=== PATIENT | female | born 1990 | race American Indian/Alaskan Native ===

== ENCOUNTER 2017-05-29 15:46 | Emergency (ER) | payer SELFPAY ==
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
[2017-05-29] MEDS ORDERED: MOTRIN PO ONE (23:39)
[2017-05-30 00:38] VITALS: BP 145/92
== END 2017-05-30 00:37 | disposition home or self-care (01) ==
LOC: ED 15:46
DX: S16.1XXA Strain of muscle, fascia and tendon at neck level, initial encounter (principal); M54.5 Low back pain; E66.01 Morbid (severe) obesity due to excess calories; Z68.43 Body mass index [BMI] 50.0-59.9, adult; F17.200 Nicotine dependence, unspecified, uncomplicated
CPT/HCPCS: 99282

== ENCOUNTER 2018-10-09 19:24 | Emergency (ER) | payer OTHER ==
--- NOTE | 2018-10-09 19:43 | Emergency Department Report ---
Chief Complaint: Extremity Injury, Upper Stated Complaint: NUMBNESS TINGLING BACK SHOULDER PAIN Time Seen by Provider: 10/09/18 19:38 - HPI History of Present Illness: This is a 28 y.o. F. that presents to the ER with numbness and tingling to hands BLE edema for a few days. Patient reports riding in a car for 5 hours yesterday and increased walking. LMP 08/26/2018 - Exam Vital Signs: Vital Signs 10/09/18 19:38 Temperature 98.2 F Pulse Rate 100 H Respiratory 18 Rate Blood Pressure 176/115 O2 Sat by Pulse 100 Oximetry MSE screening note: Focused history and physical exam performed. Due to findings the following was ordered: Labs Clonidine 0.2 mg po ED Disposition for MSE Condition: Stable
[2018-10-09] MEDS ORDERED: CATAPRES ONE (19:46)
[2018-10-09 19:57] LABS: Hematocrit 35.3 % (30.3-42.9); Hemoglobin 11.4 gm/dl (10.1-14.3); Mean Corpuscular HGB Conc 32 % (30-34); Mean Corpuscular Volume 86 fl (79-97); Platelet Count 405 K/mm3 (140-440); Red Blood Count 4.12 M/mm3 (3.65-5.03); Red Cell Distribution Width 15.4 % (13.2-15.2)
[2018-10-09 20:34] LABS: Alanine Aminotransferase 35 units/L (7-56); Albumin 3.8 g/dL (3.9-5); BUN/Creatinine Ratio 15; Blood Urea Nitrogen 9 mg/dL (7-17); Calcium 8.9 mg/dL (8.4-10.2); Hemolysis Index 1
--- NOTE | 2018-10-09 21:17 | Emergency Department Report ---
ED General Adult HPI - General Chief complaint: Extremity Injury, Upper Stated complaint: NUMBNESS TINGLING BACK SHOULDER PAIN Time Seen by Provider: 10/09/18 19:38 Source: patient Mode of arrival: Ambulatory Limitations: No Limitations - History of Present Illness Initial comments: Patient is a 28-year-old female with no significant past medical history. Patient presented to the ER complaining of generalized numbness since this morning. Patient denied any headache, chest pain, shortness of breath but she is also complaining of bilateral lower extremity swelling since yesterday. Patient stated that she drove from [place] yesterday approximately [address] - Related Data Previous Rx's Medication Instructions Recorded Last Taken Type Cyclobenzaprine [Flexeril] 10 mg PO TID PRN 5 Days #15 tablet 05/30/17 Unknown Rx Ibuprofen [Motrin 800 MG tab] 800 mg PO Q8H PRN 5 Days #15 tablet 05/30/17 Unknown Rx Allergies Allergy/AdvReac Type Severity Reaction Status Date / Time No Known Allergies Allergy Verified 10/09/18 19:29 ED Review of Systems ROS: Stated complaint: NUMBNESS TINGLING BACK SHOULDER PAIN Other details as noted in HPI Comment: All other systems reviewed and negative Constitutional: denies: chills, fever Cardiovascular: denies: chest pain, palpitations Gastrointestinal: denies: abdominal pain, nausea Neurological: numbness. denies: headache, weakness, paresthesias, confusion, abnormal gait ED Past Medical Hx - Past Medical History Previous Medical History?: Yes Additional medical history: Morbid obesity - Surgical History Past Surgical History?: No - Social History Smoking Status: Never Smoker Substance Use Type: None - Medications Home Medications: Home Medications Medication Instructions Recorded Confirmed Last Taken Type Cyclobenzaprine [Flexeril] 10 mg PO TID PRN 5 Days #15 tablet 05/30/17 Unknown Rx Ibuprofen [Motrin 800 MG tab] 800 mg PO Q8H PRN 5 Days #15 tablet 05/30/17 Unknown Rx ED Physical Exam - General Limitations: No Limitations General appearance: alert, in no apparent distress - Head Head exam: Present: atraumatic, normocephalic, normal inspection - Eye Eye exam: Present: normal appearance - ENT ENT exam: Present: normal exam, normal orophraynx, mucous membranes moist - Neck Neck exam: Present: normal inspection, full ROM. Absent: tenderness, meningismus, lymphadenopathy, thyromegaly - Respiratory Respiratory exam: Present: normal lung sounds bilaterally - Cardiovascular Cardiovascular Exam: Present: regular rate, normal rhythm, normal heart sounds - GI/Abdominal GI/Abdominal exam: Present: soft, normal bowel sounds. Absent: distended, tenderness, guarding, rebound, rigid - Extremities Exam Extremities exam: Present: normal capillary refill, pedal edema (+1) - Back Exam Back exam: Present: normal inspection. Absent: CVA tenderness (R), CVA tenderness (L) - Neurological Exam Neurological exam: Present: alert, oriented X3, CN II-XII intact, normal gait, reflexes normal - Skin Skin exam: Present: warm, intact, normal color ED Course Vital Signs 10/09/18 10/09/18 10/09/18 19:38 21:22 22:00 Temperature 98.2 F Pulse Rate 100 H 84 68 Respiratory 18 16 18 Rate Blood Pressure 176/115 145/105 Blood Pressure 147/96 [Left] O2 Sat by Pulse 100 96 94 Oximetry 10/09/18 10/09/18 10/10/18 23:01 23:48 00:00 Temperature Pulse Rate 66 64 63 Respiratory 18 23 15 Rate Blood Pressure 135/96 135/96 137/95 Blood Pressure [Left] O2 Sat by Pulse 89 95 98 Oximetry ED Medical Decision Making - Lab Data Result diagrams: 10/09/18 19:45 10/10/18 00:47 - Medical Decision Making Patient is a 28-year-old female with no significant past medical history. Patient presented to the ER complaining of generalized numbness since this morning. Patient denied any headache, chest pain, shortness of breath but she is also complaining of bilateral lower extremity swelling since yesterday. Patient stated that she drove from [place] yesterday approximately [address] Patient found to have a potassium of 2.8 which was replaced with 20 mEq IV and 40 mg given by mouth. Patient d-dimer is negative and an Pro NPB is unremarkable. Patient advised to follow-up with her primary care physician in the next 2-3 days and to return to the ER if symptoms are not improved. Critical Care Time: Yes Critical care time in (mins) excluding proc time.: 30 Critical care attestation.: If time is entered above; I have spent that time in minutes in the direct care of this critically ill patient, excluding procedure time. ED Disposition Clinical Impression: Hypokalemia, Peripheral edema Disposition: DC- TO HOME OR SELFCARE Is pt being admited?: No Condition: Stable Instructions: Hypokalemia (ED), Leg Edema (ED) Referrals: NIRANJAN MUNOZ MD [Primary Care Provider] - 3-5 Days
[2018-10-09] MEDS ORDERED: K-DUR PO ONE (21:18)
[2018-10-09] MEDS: KCL 10MEQ/100ML 10 MEQ/100 ML BAG IV SCH ×2 (21:34→23:05)
[2018-10-09] MEDS ORDERED: NACL 0.9% 500 ML 500 ML ONE (22:46)
[2018-10-09] MEDS ORDERED: NACL 0.9% 500 ML 500 ML IV ONE (22:53)
[2018-10-10 00:46] VITALS: BP 137/95
== END 2018-10-10 01:55 | disposition home or self-care (01) ==
LOC: ED 19:24
DX: E87.6 Hypokalemia (principal); R60.9 Edema, unspecified; E66.01 Morbid (severe) obesity due to excess calories; Z68.44 Body mass index [BMI] 60.0-69.9, adult
CPT/HCPCS: 36415; 80053; 83880; 84132; 85027; 85379; 96365; 99283; J3480; J7040